=== PATIENT | male | born 1985 | race African-American/Black ===

== ENCOUNTER → 2018-10-14 | Outpatient (CLI) | payer BC ==
[~2018-10-14] MED LIST: IBUP-1223 PO
== END | disposition home or self-care (01) ==
LOC: STAR 14:46
PROVIDERS: ATTEND Orthopaedic Surgery
DX: Z02.9 Encounter for administrative examinations, unspecified (principal)

== ENCOUNTER 2018-10-21 08:18 | Day surgery (SDC) | payer BC ==
[2018-10-14 15:00] VITALS: BP 134/93
[~2018-10-21] VITALS: Ht 188 cm; Wt 99.9 kg
[~2018-10-21 08:18] MED LIST changes: +LIDOCAINE 1%-EPI 1:100K, 30ML ONE
[2018-10-21] MEDS ORDERED: LACTATED RINGERS 1,000 ML IV SCH ×2 (08:38→10:39)
[2018-10-21] MEDS ORDERED: MULT-658 PO (08:41)
[2018-10-21] MEDS ORDERED: FLUT9.9S NAS (08:41)
[2018-10-21] MEDS ORDERED: LIDOCAINE-MPF 1%, 2ML INFIL ONE (09:00)
[2018-10-21] MEDS ORDERED: MIDAZOLAM 1 MG/ML, 2ML ONE ×2 (09:29→09:33)
[2018-10-21] MEDS ORDERED: FENTANYL PF 250 MCG/5ML ONE (09:33)
[2018-10-21] MEDS ORDERED: ALBUTEROL SULFATE 2.5 MG/3 ML NPPB PRN (11:00)
[2018-10-21] MEDS ORDERED: hydrALAzine 20 MG/ML, 1ML IV PRN (11:00)
[2018-10-21] MEDS ORDERED: KETOROLAC 30 MG/1 ML IV PRN (11:00)
[2018-10-21] MEDS ORDERED: PROMETHAZINE 25 MG/ML, 1ML IV PRN (11:00)
[2018-10-21] MEDS ORDERED: OXYcodone 5 MG/5 ML ORAL.SOL UDC PO PRN (11:00)
[2018-10-21] MEDS ORDERED: MEPERIDINE/PF 25MG/0.5ML IVPush PRN (11:00)
[2018-10-21] MEDS ORDERED: FENTANYL PF 100 MCG/2ML IV PRN (11:00)
[2018-10-21] MEDS ORDERED: ACETAMINOPHEN 325 MG TABLET PO PRN (11:00)
[2018-10-21] MEDS ORDERED: HYDROmorphone 1 MG/ML, 1ML IV PRN (11:00)
[2018-10-21] MEDS ORDERED: LABETALOL 5MG/ML, 20ML IV PRN (11:00)
[2018-10-21] MEDS ORDERED: KETOROLAC 30 MG/1 ML ONE (11:22)
[2018-10-21] MEDS ORDERED: OXYcodone 5 MG/5 ML ORAL.SOL UDC ONE (11:23)
[2018-10-21] MEDS ORDERED: PROMETHAZINE 25 MG/ML, 1ML IM PRN (14:00)
== END 2018-10-21 14:50 | disposition home or self-care (01) ==
LOC: OUT 08:18
PROVIDERS: ATTEND Orthopaedic Surgery
DX: S43.402A Unspecified sprain of left shoulder joint, initial encounter (principal); X58.XXXA Exposure to other specified factors, initial encounter; Y93.9 Activity, unspecified; Y92.9 Unspecified place or not applicable; Y99.9 Unspecified external cause status; M65.812 Other synovitis and tenosynovitis, left shoulder; I10 Essential (primary) hypertension; Z79.899 Other long term (current) drug therapy
CPT/HCPCS: 29822; J1885; J2250; J2550; J3010; J3490; J7120